=== PATIENT | male | born 1995 | race Caucasian/White ===

== ENCOUNTER 2020-02-17 09:56 | Emergency (ER) | payer BC ==
[2020-02-17] MEDS ORDERED: Zofran 4 MG/2 ML VIAL IV ONE ×2 (10:07→10:43)
[2020-02-17 10:27] LABS: BASOPHIL % 0.4 % (0.0-0.4); Basophil (Absolute #) 0.03 (0-0.4); Eosinophil % 1.2 % (0.00-5.0); Hemoglobin 17.3 gm/dl (12.5-18.0); Lymphocyte (Absolute #) 1.11 (1.0-4.6); Lymphocytes % 13.8 % (24.0-44.0); Mean Cell Volume 85.4 fl (78-100); Mean Corpuscular Hemoglobin 30.8 pg (26-32); Mean Platelet Volume 9.6 fl (7.5-11.0); Monocyte (Absolute #) 0.59 (0.0-1.3); Monocytes % 7.3 % (0.0-12.0); Neutrophil % 77.3 % (36.0-66.0); Platelet Count 233 K/mm3 (150-450); Red Blood Count 5.62 M/mm3 (4.1-5.6); Red Cell Distribution Width 12.9 % (11.5-14.0)
[2020-02-17 10:36] LABS: ALBUMIN 4.3 g/dL (3.5-5.0); ALKALINE PHOSPHATASE 95 U/L (38-126); ANION GAP 14.4 MEQ/L (5-15); BLOOD UREA NITROGEN 12 mg/dL (9-20); CHLORIDE 103 mmol/L (98-107); Calcium 9.7 mg/dL (8.4-10.2); Carbon Dioxide 24 mmol/L (22-30); Glucose 146 mg/dL (74-106); Potassium 3.8 mmol/L (3.5-5.1); SGOT/AST 26 U/L (17-59); SGPT/ALT 19 U/L (0-50); SODIUM 139 mmol/L (137-145); Total Protein 7.3 g/dL (6.3-8.2)
[2020-02-17 10:43] LABS: ETHYL ALCOHOL < 10 mg/dL (0-10)
[2020-02-17] MEDS ORDERED: Zofran 4 MG/2 ML VIAL ONE (10:44)
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
[2020-02-17 11:00] VITALS: O2SAT 98
[2020-02-17 11:01] LABS: BAND 2 % (0.0-2.0); Basophil 1 % (0.0-1.0); Eosinophil 3 % (0.00-3.0); Lymphocytes 21 % (24-44); Monocyte 4 % (0.0-12.0); Neutrophils 69 % (36.-66.); Platelet Estimate NORMAL (NORMAL); Total Cells Counted 100
[2020-02-17 11:44] VITALS: BP 143/67; PULSE 72
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
== END 2020-02-17 11:44 | disposition home or self-care (01) ==
LOC: ED 09:56
DX: E10.649 Type 1 diabetes mellitus with hypoglycemia without coma (principal); M25.512 Pain in left shoulder; V47.0XXA Car driver injured in collision with fixed or stationary object in nontraffic accident, initial encounter; Y93.9 Activity, unspecified; Y92.89 Other specified places as the place of occurrence of the external cause
CPT/HCPCS: 36000; 36415; 73030; 80053; 80307; 82962; 85025; 94760; 96374; 99284; J2405; G0480

== ENCOUNTER 2023-11-03 08:14 | Emergency (ER) | payer OTHER, BC ==
--- NOTE | 2023-11-03 08:24 | ERPHSYRPT ---
- History of Present Illness Time Seen by Provider: 11/03/23 08:24 Historian: patient Exam Limitations: no limitations Physician History: This is a 27-year-old white male patient who has a history of insulin dependent diabetes and uses an insulin pump and monitor. He first presented to the urgent care center where he had the primary complaint of multiple episodes of vomiting and then dry heaves since 3:00 this morning. Urgent care then sent the patient to the emergency department secondary to persistent dry heaving. Patient's blood sugar at the time of the referral was 120. Patient denies chest pain. Patient denies abdominal pain at this time but was having some abdominal cramping earlier. He has not had any diarrhea. He is not short of breath. Timing/Duration: today Activities at Onset: none Quality: cramping Abdominal Pain Onset Location: generalized abdomen Pain Radiation: no radiation Severity of Pain-Max: mild Severity of Pain-Current: none Modifying Factors: Improves With: vomiting Associated Symptoms: loss of appetite, nausea, vomiting, weakness Previous symptoms: no prior history, no recent treatment Allergies/Adverse Reactions: azithromycin [From Zithromax] Allergy (Verified 11/03/23 08:47) Home Medications: Insulin Lispro [Humalog] 0 units SQ TID 11/30/14 [History] Hx Tetanus, Diphtheria Vaccination/Date Given: Yes Hx Influenza Vaccination/Date Given: No Hx Pneumococcal Vaccination/Date Given: No Travel Risk - International Travel Have you traveled outside of the country in past 3 weeks: No - Coronavirus Screening Are you exhibiting any of the following symptoms?: Yes Symptoms: Vomiting/Diarrhea Close contact with a COVID-19 positive Pt in past 14-21 Days: No - Review of Systems Constitutional: Weakness Eyes: No Symptoms Ears, Nose, & Throat: No Symptoms Respiratory: No Symptoms Cardiac: No Symptoms Abdominal/Gastrointestinal: Abdominal Pain, Nausea, Vomiting, Appetite Changes Genitourinary Symptoms: No Symptoms Musculoskeletal: No Symptoms Skin: No Symptoms Neurological: No Symptoms Psychological: No Symptoms Endocrine: No Symptoms Hematologic/Lymphatic: No Symptoms Immunological/Allergic: No Symptoms All Other Systems: Reviewed and Negative - Past Medical History Pertinent Past Medical History: Yes Neurological History: No Pertinent History ENT History: No Pertinent History Cardiac History: No Pertinent History Respiratory History: No Pertinent History Endocrine Medical History: Diabetes Type I Musculoskeletal History: No Pertinent History GI Medical History: No Pertinent History History: No Pertinent History Psycho-Social History: No Pertinent History Male Reproductive Disorders: No Pertinent History - Past Surgical History Past Surgical History: Yes Neuro Surgical History: No Pertinent History Cardiac: No Pertinent History Respiratory: No Pertinent History Gastrointestinal: No Pertinent History Genitourinary: No Pertinent History Musculoskeletal: No Pertinent History Male Surgical History: No Pertinent History Other Surgical History: lymph node removed lt side neck,TONSILS AND ADNOIDS, I & D- cyst , MOLES- collar bone, wisdom teeth - Social History Smoking Status: Never smoker Exposure to second hand smoke: No Drug Use: none Patient Lives Alone: Yes - Nursing Vital Signs Nursing Vital Signs: Initial Vital Signs Temperature 98.3 F 11/03/23 08:48 Pulse Rate 113 H 11/03/23 08:48 Respiratory Rate 19 11/03/23 08:48 Blood Pressure 125/80 11/03/23 08:48 O2 Sat by Pulse Oximetry 99 11/03/23 08:48 Pain Scale Pain Intensity 0 - Physical Exam General Appearance: no apparent distress, alert, anxiety, thin Eye Exam: PERRL/EOMI, eyes nml inspection Ears, Nose, Throat Exam: normal ENT inspection, moist mucous membranes Neck Exam: normal inspection, non-tender, supple, full range of motion Respiratory Exam: normal breath sounds, lungs clear, airway intact, No chest tenderness, No respiratory distress Cardiovascular Exam: tachycardia Gastrointestinal/Abdomen Exam: soft, normal bowel sounds, tenderness (Mild diffuse), guarding (Mild diffuse to palpation), No rebound Rectal Exam: not done Back Exam: normal inspection, normal range of motion, No CVA tenderness, No vertebral tenderness Extremity Exam: normal inspection, normal range of motion, pelvis stable Neurologic Exam: alert, oriented x 3, cooperative, 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, normal mood/affect, nml cerebellar function, nml station & gait, sensation nml Skin Exam: normal color, warm, dry Lymphatic Exam: No adenopathy SpO2 Interpretation: normal O2 Delivery: Room Air - Course Nursing assessment & vital signs reviewed: Yes Ordered Tests: Active Orders 24 hr Category Date Time Status IV Insertion STAT Care 11/03/23 08:47 Active ABDOMEN AND PELVIS W/0 CONTRAS [CT] Stat Exams 11/03/23 08:48 Completed AMYLASE Stat Lab 11/03/23 09:00 Completed BMP Stat Lab 11/03/23 13:00 Completed CBC W DIFF Stat Lab 11/03/23 09:00 Completed CMP Stat Lab 11/03/23 09:00 Completed LIPASE Stat Lab 11/03/23 09:00 Completed Lactic Acid Stat Lab 11/03/23 09:00 Completed Lactic Acid Stat Lab 11/03/23 11:07 Completed UA W/RFX UR CULTURE Stat Lab 11/03/23 08:54 Completed Medication Summary Discontinued Medications Generic Name Dose Route Start Last Admin Trade Name Sumi PRN Reason Stop Dose Admin Sodium Chloride 1,000 mls @ 999 mls/hr 11/03/23 08:47 11/03/23 10:08 Sodium Chloride 0.9% 1000 Ml IV 11/03/23 09:47 Infused .Q1H1M STA Infusion Sodium Chloride Confirm 11/03/23 08:58 Sodium Chloride 0.9% 1000 Ml Administered 11/03/23 08:59 Dose 1,000 mls @ ud .ROUTE .STK-MED ONE Sodium Chloride 1,000 mls @ 999 mls/hr 11/03/23 09:51 11/03/23 11:11 Sodium Chloride 0.9% 1000 Ml IV 11/03/23 10:51 Infused .Q1H1M STA Infusion Sodium Chloride Confirm 11/03/23 10:08 Sodium Chloride 0.9% 1000 Ml Administered 11/03/23 10:09 Dose 1,000 mls @ ud .ROUTE .STK-MED ONE Sodium Chloride 1,000 mls @ 999 mls/hr 11/03/23 11:22 11/03/23 13:06 Sodium Chloride 0.9% 1000 Ml IV 11/03/23 12:22 Infused .Q1H1M STA Infusion Sodium Chloride Confirm 11/03/23 12:04 Sodium Chloride 0.9% 1000 Ml Administered 11/03/23 12:05 Dose 1,000 mls @ ud .ROUTE .STK-MED ONE Ondansetron HCl 4 mg 11/03/23 08:47 11/03/23 08:59 Ondansetron Hcl 4 Mg/2 Ml Vial IV 11/03/23 08:48 4 mg STAT ONE Administration Ondansetron HCl Confirm 11/03/23 08:58 Ondansetron Hcl 4 Mg/2 Ml Vial Administered 11/03/23 08:59 Dose 4 mg .ROUTE .STK-MED ONE Pantoprazole Sodium 40 mg 11/03/23 08:47 11/03/23 08:59 Pantoprazole 40 Mg Vial IV 11/03/23 08:48 40 mg STAT ONE Administration Pantoprazole Sodium Confirm 11/03/23 08:58 Pantoprazole 40 Mg Vial Administered 11/03/23 08:59 Dose 40 mg IV .[facility] ONE Lab/Rad Data: Laboratory Result Diagrams 11/03/23 09:00 11/03/23 13:00 Laboratory Results 11/03/23 11/03/23 11/03/23 Range/Units 13:00 11:07 09:00 WBC (4.0-10.5) x10^3/uL RBC (4.1-5.6) x10^6/uL Hgb (12.5-18.0) g/dL Hct (42-50) % MCV (78-100) fL MCH (26-32) pg MCHC (32-36) g/dL RDW (11.5-14.0) % Plt Count (150-450) x10^3/uL MPV (7.5-11.0) fL Gran % (36.0-66.0) % Immature Gran % (Auto) (0.00-0.4) % Nucleat RBC Rel Count (0.00-0.1) % Eos # (Auto) (0-0.5) x10^3/uL Immature Gran # (Auto) (0.00-0.03) x10^3u/L Absolute Lymphs (auto) (1.0-4.6) x10^3/uL Absolute Monos (auto) (0.0-1.3) x10^3/uL Absolute Nucleated RBC (0.00-0.01) x10^3u/L Lymphocytes % (24.0-44.0) % Monocytes % (0.0-12.0) % Eosinophils % (0.00-5.0) % Basophils % (0.0-0.4) % Absolute Granulocytes (1.4-6.9) x10^3/uL Basophils # (0-0.4) x10^3/uL Sodium 136 L 139 (137-145) mmol/L Potassium 4.3 4.3 (3.5-5.1) mmol/L Chloride 106 104 (98-107) mmol/L Carbon Dioxide 22 24 (22-30) mmol/L Anion Gap 12.4 15.1 H (5-15) MEQ/L BUN 18 23 H (9-20) mg/dL Creatinine 0.73 0.79 (0.66-1.25) mg/dL Estimated GFR 129.5 126.4 ML/MIN Glucose 174 H 97 (74-106) mg/dL Lactic Acid 1.0 (0.4-2.0) Calcium 7.4 L D 9.3 (8.4-10.2) mg/dL Total Bilirubin 1.50 H (0.2-1.3) mg/dL AST 28 (17-59) U/L ALT 29 (0-50) U/L Alkaline Phosphatase 124 (38-126) U/L Serum Total Protein 7.6 (6.3-8.2) g/dL Albumin 4.5 (3.5-5.0) g/dL Amylase 79 (30-110) U/L Lipase 38 (23-300) U/L Urine Color (Yellow) Urine Appearance (Clear) Urine pH (4.6-8.0) Ur Specific [place] (1.005-1.030) Urine Protein (Negative) Urine Glucose (UA) (Negative) mg/dL Urine Ketones (Negative) Urine Blood (Negative) Urine Nitrite (Negative) Urine Bilirubin (Negative) Urine Urobilinogen (0.2) mg/dL Ur Leukocyte Esterase (Negative) U Hyaline Cast (Auto) (0-2) /LPF Urine Microscopic RBC (0-5) /HPF Urine Microscopic WBC (0-5) /HPF Ur Epithelial Cells (None Seen) /HPF Urine Bacteria (None Seen) /HPF Urine Culture Reflexed (NO) Influenza Type A Ag (NEGATIVE) Influenza Type B Ag (NEGATIVE) RSV (PCR) (NEGATIVE) SARS-CoV-2 (PCR) (NEGATIVE) Slides for Path Review 11/03/23 11/03/23 11/03/23 Range/Units 09:00 09:00 08:54 WBC 11.0 H (4.0-10.5) x10^3/uL RBC 5.90 H (4.1-5.6) x10^6/uL Hgb 18.1 H (12.5-18.0) g/dL Hct 51.5 H (42-50) % MCV 87.3 (78-100) fL MCH 30.7 (26-32) pg MCHC 35.1 (32-36) g/dL RDW 12.3 (11.5-14.0) % Plt Count 275 (150-450) x10^3/uL MPV 8.5 (7.5-11.0) fL Gran % 88.8 H (36.0-66.0) % Immature Gran % (Auto) 0.3 (0.00-0.4) % Nucleat RBC Rel Count 0.0 (0.00-0.1) % Eos # (Auto) 0.04 (0-0.5) x10^3/uL Immature Gran # (Auto) 0.03 (0.00-0.03) x10^3u/L Absolute Lymphs (auto) 0.57 L (1.0-4.6) x10^3/uL Absolute Monos (auto) 0.54 (0.0-1.3) x10^3/uL Absolute Nucleated RBC 0.00 (0.00-0.01) x10^3u/L Lymphocytes % 5.2 L (24.0-44.0) % Monocytes % 4.9 (0.0-12.0) % Eosinophils % 0.4 (0.00-5.0) % Basophils % 0.4 (0.0-0.4) % Absolute Granulocytes 9.75 H (1.4-6.9) x10^3/uL Basophils # 0.04 (0-0.4) x10^3/uL Sodium (137-145) mmol/L Potassium (3.5-5.1) mmol/L Chloride (98-107) mmol/L Carbon Dioxide (22-30) mmol/L Anion Gap (5-15) MEQ/L BUN (9-20) mg/dL Creatinine (0.66-1.25) mg/dL Estimated GFR ML/MIN Glucose (74-106) mg/dL Lactic Acid 3.8 H (0.4-2.0) Calcium (8.4-10.2) mg/dL Total Bilirubin (0.2-1.3) mg/dL AST (17-59) U/L ALT (0-50) U/L Alkaline Phosphatase (38-126) U/L Serum Total Protein (6.3-8.2) g/dL Albumin (3.5-5.0) g/dL Amylase (30-110) U/L Lipase (23-300) U/L Urine Color (Yellow) Urine Appearance (Clear) Urine pH (4.6-8.0) Ur Specific [place] (1.005-1.030) Urine Protein (Negative) Urine Glucose (UA) (Negative) mg/dL Urine Ketones (Negative) Urine Blood (Negative) Urine Nitrite (Negative) Urine Bilirubin (Negative) Urine Urobilinogen (0.2) mg/dL Ur Leukocyte Esterase (Negative) U Hyaline Cast (Auto) (0-2) /LPF Urine Microscopic RBC (0-5) /HPF Urine Microscopic WBC (0-5) /HPF Ur Epithelial Cells (None Seen) /HPF Urine Bacteria (None Seen) /HPF Urine Culture Reflexed (NO) Influenza Type A Ag NEGATIVE (NEGATIVE) Influenza Type B Ag NEGATIVE (NEGATIVE) RSV (PCR) NEGATIVE (NEGATIVE) SARS-CoV-2 (PCR) NEGATIVE (NEGATIVE) Slides for Path Review YES 11/03/23 Range/Units 08:54 WBC (4.0-10.5) x10^3/uL RBC (4.1-5.6) x10^6/uL Hgb (12.5-18.0) g/dL Hct (42-50) % MCV (78-100) fL MCH (26-32) pg MCHC (32-36) g/dL RDW (11.5-14.0) % Plt Count (150-450) x10^3/uL MPV (7.5-11.0) fL Gran % (36.0-66.0) % Immature Gran % (Auto) (0.00-0.4) % Nucleat RBC Rel Count (0.00-0.1) % Eos # (Auto) (0-0.5) x10^3/uL Immature Gran # (Auto) (0.00-0.03) x10^3u/L Absolute Lymphs (auto) (1.0-4.6) x10^3/uL Absolute Monos (auto) (0.0-1.3) x10^3/uL Absolute Nucleated RBC (0.00-0.01) x10^3u/L Lymphocytes % (24.0-44.0) % Monocytes % (0.0-12.0) % Eosinophils % (0.00-5.0) % Basophils % (0.0-0.4) % Absolute Granulocytes (1.4-6.9) x10^3/uL Basophils # (0-0.4) x10^3/uL Sodium (137-145) mmol/L Potassium (3.5-5.1) mmol/L Chloride (98-107) mmol/L Carbon Dioxide (22-30) mmol/L Anion Gap (5-15) MEQ/L BUN (9-20) mg/dL Creatinine (0.66-1.25) mg/dL Estimated GFR ML/MIN Glucose (74-106) mg/dL Lactic Acid (0.4-2.0) Calcium (8.4-10.2) mg/dL Total Bilirubin (0.2-1.3) mg/dL AST (17-59) U/L ALT (0-50) U/L Alkaline Phosphatase (38-126) U/L Serum Total Protein (6.3-8.2) g/dL Albumin (3.5-5.0) g/dL Amylase (30-110) U/L Lipase (23-300) U/L Urine Color Dark Yellow (Yellow) Urine Appearance Clear (Clear) Urine pH 5.0 (4.6-8.0) Ur Specific [place] >=1.030 A (1.005-1.030) Urine Protein Trace A (Negative) Urine Glucose (UA) >=1000 A (Negative) mg/dL Urine Ketones 40 A (Negative) Urine Blood Negative (Negative) Urine Nitrite Negative (Negative) Urine Bilirubin Negative (Negative) Urine Urobilinogen 0.2 (0.2) mg/dL Ur Leukocyte Esterase Negative (Negative) U Hyaline Cast (Auto) NONE SEEN (0-2) /LPF Urine Microscopic RBC 0-2 (0-5) /HPF Urine Microscopic WBC 0-2 (0-5) /HPF Ur Epithelial Cells None Seen (None Seen) /HPF Urine Bacteria None Seen (None Seen) /HPF Urine Culture Reflexed NO (NO) Influenza Type A Ag (NEGATIVE) Influenza Type B Ag (NEGATIVE) RSV (PCR) (NEGATIVE) SARS-CoV-2 (PCR) (NEGATIVE) Slides for Path Review - Progress Progress: improved, re-examined Progress Note: 11/03/23 09:29 This patient's medical issue is of moderate complexity. The level of complexity in the workup performed is based on review of the patient's past medical hist ory, review the patient's medication list, review the patient's drug allergy list, history of present illness and physical findings on examination. The workup in this patient includes placement of intravenous line, infusion of normal saline solution, urinalysis, CBC, CMP, amylase, lipase, CT scan of the abdomen pelvis, and providing the patient with Zofran, and intravenous Protonix. We will also order a lactic acid level. 11/03/23 11:22 CT scan of the abdomen pelvis without contrast was interpreted by the radiologist and I reviewed the impression. Impression states mild diffuse fecal stasis. Remainder of the CT scan of the abdomen and pelvis without contrast is normal. 11/03/23 14:16 I interpreted this patient's laboratory data results. Patient had mild DKA. He had a lactic acid that was elevated but after IV hydration he has a normal lactic acid level. His CO2 was in the normal range and his anion gap was just slightly elevated initially. However after IV hydration his CO2 remains in the normal range as does his anion gap. Patient has normal kidney function as well as normal electrolytes. He is tolerating liquids well and I believe he is stable for discharge to home. He wants to go home as well. Counseled pt/family regarding: lab results, diagnosis, need for follow-up, rad results Medical Desision Making - Diagnostic Testing Diagnostic test were ordered, analyzed, and reviewed by me: Yes Radiological Interpretation: Reviewed by me, Teleradiologist Report - Risk of complications The pt has a mod risk of morbidity or mortality based on: Need for prescription drug management - Departure Departure Disposition: Home Clinical Impression: Vomiting, DKA (diabetic ketoacidosis) Condition: Stable Critical Care Time: No Referrals: DOCTOR,NO FAMILY [Primary Care Provider] - Follow up/PCP as directed Additional Instructions: Drink plenty of clear liquids. Monitor your blood sugar closely. Take your medications as prescribed. Prescriptions: Ondansetron ODT 4 MG [Zofran Odt 4 mg] 4 mg PO Q6H PRN PRN #10 tablet PRN Reason: Vomiting
[2023-11-03 08:54] VITALS: TEMP 98.3
[2023-11-03] MEDS ORDERED: Zofran 4 MG/2 ML VIAL ONE (08:58)
[2023-11-03] MEDS ORDERED: PROTONIX 40 MG IV IV ONE (08:58)
[2023-11-03] MEDS ORDERED: Sodium Chloride 0.9% 1000 ML 1,000 ML ONE ×3 (08:58→12:04)
[2023-11-03] MEDS: Zofran 4 MG/2 ML VIAL IV ONE (08:59)
[2023-11-03] MEDS: PROTONIX 40 MG IV IV ONE (08:59)
[2023-11-03] MEDS: Sodium Chloride 0.9% 1000 ML 1,000 ML IV STA ×3 (09:00→12:04)
[2023-11-03 09:03] LABS: Absolute Neutrophil Ct (ANC) 9.75 x10^3/uL (1.4-6.9); BASOPHIL % 0.4 % (0.0-0.4); Basophil (Absolute #) 0.04 x10^3/uL (0-0.4); Eosinophil % 0.4 % (0.00-5.0); Eosinophil (Absolute #) 0.04 x10^3/uL (0-0.5); Hematocrit 51.5 % (42-50); Hemoglobin 18.1 g/dL (12.5-18.0); IMMATURE GRAN # 0.03 x10^3u/L (0.00-0.03); IMMATURE GRAN % 0.3 % (0.00-0.4); Lymphocyte (Absolute #) 0.57 x10^3/uL (1.0-4.6); Lymphocytes % 5.2 % (24.0-44.0); Mean Cell Volume 87.3 fL (78-100); Mean Corpuscular Hemoglobin 30.7 pg (26-32); Mean Corpuscular Hgb Concent. 35.1 g/dL (32-36); Mean Platelet Volume 8.5 fL (7.5-11.0); Monocyte (Absolute #) 0.54 x10^3/uL (0.0-1.3); Monocytes % 4.9 % (0.0-12.0); Neutrophil % 88.8 % (36.0-66.0); Platelet Count 275 x10^3/uL (150-450); Red Cell Distribution Width 12.3 % (11.5-14.0)
[2023-11-03 09:14] LABS: Appearance Clear (Clear); Bacteria None Seen /HPF (None Seen); Bilirubin Negative (Negative); Blood Negative (Negative); Epithelial Cells None Seen /HPF (None Seen); Glucose, Urine >=1000 mg/dL (Negative); Hyaline Casts NONE SEEN /LPF (0-2); Ketones 40 (Negative); Leukocyte Esterase Negative (Negative); Nitrite Negative (Negative); Protein,Urine Dip Trace (Negative); RBC 0-2 /HPF (0-5); Specific Gravity >=1.030 (1.005-1.030); Urobilinogen 0.2 mg/dL (0.2); WBC 0-2 /HPF (0-5)
[2023-11-03 09:16] LABS: ADD URINE CULTURE? NO (NO)
[2023-11-03 09:17] LABS: ALBUMIN 4.5 g/dL (3.5-5.0); ANION GAP 15.1 MEQ/L (5-15); BILIRUBIN,TOTAL 1.5 mg/dL (0.2-1.3); Calcium 9.3 mg/dL (8.4-10.2); Creatinine 1 0.79 mg/dL (0.66-1.25); EST GLOMERULAR FILTRATION RATE 126.4 ML/MIN; Potassium 4.3 mmol/L (3.5-5.1); Total Protein 7.6 g/dL (6.3-8.2)
[2023-11-03 09:40] LABS: INFLUENZA A NEGATIVE (NEGATIVE); INFLUENZA B NEGATIVE (NEGATIVE); RESPIRATORY SYNCTIAL VIRUS NEGATIVE (NEGATIVE); SARS-CoV-2 Xpert Express NEGATIVE (NEGATIVE)
[2023-11-03 10:51] LABS: Slide Review 1 YES
--- NOTE | 2023-11-03 11:12 | XRAY ---
Indication: Abdomen pain, vomiting, nausea, and diarrhea. Multiple contiguous axial images obtained through the abdomen and pelvis without contrast. Comparison: None Lung bases clear. Heart not enlarged. Noncontrasted stomach and bowel loops appear nonobstructed with normal appendix. Mild diffuse scattered colonic fecal debris throughout including rectum. No free fluid/air. Remaining liver, gallbladder, pancreas, spleen, adrenal glands, kidneys, ureters, bladder, and aorta are unremarkable for noncontrast exam. Osseous structures intact. Impression: Mild diffuse fecal stasis. Remaining CT abdomen/pelvis without contrast exam is normal.
[2023-11-03 13:46] LABS: ANION GAP 12.4 MEQ/L (5-15); Calcium 7.4 mg/dL (8.4-10.2); Creatinine 1 0.73 mg/dL (0.66-1.25); EST GLOMERULAR FILTRATION RATE 129.5 ML/MIN; Potassium 4.3 mmol/L (3.5-5.1)
[2023-11-03 14:40] VITALS: BP 100/55; PULSE 125; RESP 18; O2SAT 96
== END 2023-11-03 14:50 | disposition left against medical advice (07) ==
LOC: ED 08:14
DX: E10.10 Type 1 diabetes mellitus with ketoacidosis without coma (principal); R11.2 Nausea with vomiting, unspecified
CPT/HCPCS: 0241U; 36000; 36415; 74176; 80048; 80053; 81001; 82150; 83605; 83690; 85025; 96374; 96375; 99284; J2405